=== PATIENT | female | born 2000 | race Caucasian/White ===

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

== ENCOUNTER 2023-10-20 12:53 | Outpatient (CLI) | payer BC, MEDICAID | END 2023-10-20 23:59 | disposition home or self-care (01) | LOC: MRI 12:53 | PROVIDERS: ATTEND Pediatrics Sports Medicine | DX: M50.322 Other cervical disc degeneration at C5-C6 level (principal); M48.02 Spinal stenosis, cervical region; M79.10 Myalgia, unspecified site | CPT/HCPCS: 72141 ==